=== PATIENT | male | born 1995 | race Caucasian/White ===

== ENCOUNTER 2024-05-28 20:06 | Observation (INO) | payer SELFPAY ==
[2024-05-28 20:09] VITALS: BP 118/78; PULSE 72; RESP 18; TEMP 36.8; O2SAT 100; BMI 26.9
--- NOTE | 2024-05-28 20:13 | ED_ITS ---
<Statement entered by Vero Iqbal DO - 05/28/24 22:26> I was consulted by the JEFFREY, and we discussed the complexity of the problems being addressed. I approved the treatment and management plan for this patient's care in the emergency department, thus performing a substantive portion of the medical decision making. Vero Iqbal DO Discharge Plan Disposition Patient Disposition: Admitted Condition: Good Referrals Follow up/Referrals: Provider,Referral, MD [Primary Care Provider] - See instructions Clinical Impressions Clinical Impression: Acute nontraumatic kidney injury, Non-traumatic rhabdomyolysis, Laceration Syncope Qualifiers: Syncope type: unspecified Qualified Code(s): R55 - Syncope and collapse Instructions Patient Instructions: DI for Syncope in Adults (Fainting), DI for Syncope in Children (Fainting) Print Language Print Language: English Discharge ED Provider: Vero Iqbal General Adult HPI <DANNIELLE Vaughn - Last Filed: 05/28/24 22:20> General Chief complaint: Syncope Stated complaint: AO 05/28/24 1930 laceration to head-fell in shower Time Seen by Provider: 05/28/24 20:13 History of Present Illness HPI narrative: Patient presents for evaluation of syncope. 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 He reportedly was taking a shower at the end of his day and felt his vision go blurry and had a syncopal event. He struck the side of his head and suffering a laceration. When he awoke he asked for help and upon standing with assistance he had another syncopal event but did not suffer any injury. On arrival patient reports a headache but denies vision changes neck pain chest pain muscle pain chest pain shortness of breath fever chills hemoptysis hematochezia melena nausea vomiting diarrhea change in level of consciousness. Related Data Allergies Allergy/AdvReac Type Severity Reaction Status Date / Time No Known Allergies Allergy Verified 05/28/24 20:25 PFSH <DANNIELLE Vaughn - Last Filed: 05/28/24 22:20> [facility] Disclaimer: The information contained in this section may have been updated after the patient was seen, as this information can be updated by other users. Medical History (Updated 05/28/24 @ 22:20 by DANNIELLE Vaughn) Acid reflux Social History Smoking Status: Never smoker alcohol intake: current alcohol intake frequency: holidays/special occasions only current occupational status: employed Travel in the last 8 weeks: Inside the [place] <DANNIELLE Vuaghn - Last Filed: 05/28/24 22:20> ROS Obtained: Yes Systems reviewed as appropriate & no additional complaints except as documented Physical Exam <DANNIELLE Vaughn - Last Filed: 05/28/24 22:20> General General appearance: alert and in no apparent distress Head Head exam: other (Patient has a 2 cm lack on the left side of his scalp near the top of the temporal area on the left. No bony deformity noted.) Eye Eye exam: Present normal appearance, PERRL and EOMI Neck Neck exam: Present normal inspection, full ROM and trachea midline; Absent tenderness Chest Chest inspection: Present normal inspection and symmetric chest wall rise; Absent tenderness Respiratory Respiratory exam: Present normal lung sounds bilaterally; Absent respiratory distress, wheezes or accessory muscle use Cardiovascular Cardiovascular exam: Present regular rate, normal rhythm, normal heart sounds, +S1 and +S2 Extremities Exam Extremities exam: Present normal inspection and full ROM Back Exam Back exam: Present normal inspection and full ROM; Absent tenderness Neurological Exam Neurological exam: Present alert, oriented X3, CN II-XII intact and normal gait; Absent motor sensory deficit Psychiatric Psychiatric exam: Present normal affect and normal mood Medical Decision Making <DANNIELLE Vaughn - Last Filed: 05/28/24 22:20> Medical Records Medical records reviewed: Yes I reviewed the patient's medical records. Screening: Per USPSTF and CDC recommendations, given the prevalence of disease in our region, it is our hospital?s policy to screen for HIV and viral Hepatitis for all patients aged 18 and over and those with ongoing risk factors. Shahid Inquiry Pt receiving controlled substance: No Vital Signs: 05/28/24 20:09 05/28/24 20:30 05/28/24 21:41 Temperature 98.2 F Temperature Source Oral Pulse Rate 86 69 Pulse Rate [Left Radial] 72 Respiratory Rate 18 Blood Pressure 114/69 122/73 Blood Pressure [Right Arm] 118/78 Blood Pressure Mean Blood Pressure Mean [Right Arm] 91 Blood Pressure Source [Right Arm] Automatic Cuff Blood Pressure Position [Right Arm] Sitting 02 Sat by Pulse Oximetry 100 100 100 Oxygen Delivery Method Room Air 05/28/24 21:41 05/28/24 22:00 Temperature Temperature Source Pulse Rate 71 74 Pulse Rate [Left Radial] Respiratory Rate 16 16 Blood Pressure 122/73 122/75 Blood Pressure [Right Arm] Blood Pressure Mean 84 94 Blood Pressure Mean [Right Arm] Blood Pressure Source [Right Arm] Blood Pressure Position [Right Arm] 02 Sat by Pulse Oximetry Oxygen Delivery Method Lab Data Lab results reviewed: Yes I reviewed the patient's lab results. Lab Results 05/28/24 20:55: WBC 11.9 H, RBC 6.21 H, Hgb 18.4 H, Hct 55.1 H, MCV 91.3, MCH 29.7, MCHC 32.5, RDW 13.1, Plt Count 246, MPV 9.2, Neut % (Auto) 85.9 H, Lymph % (Auto) 9.2 L, [place] % (Auto) 3.5, Eos % (Auto) 1.1, Baso % (Auto) 0.4, Neut # (Auto) 10.2 H, Lymph # (Auto) 1.1, [place] # (Auto) 0.4, Eos # (Auto) 0.1, Baso # (Auto) 0.0, Sodium 140, Potassium 4.2, Chloride 98, Carbon Dioxide 27, Anion Gap 19.2 H, BUN 31 H, Creatinine 1.80 H, Estimated Creat Clear 67, Estimated GFR 45 L, Est GFR ( Amer) 54 L, Glucose 86, Calcium 10.6 H, Magnesium 2.2, Total Bilirubin 1.2, AST 60 H, ALT 41, Alkaline Phosphatase 62, Total Creatine Kinase 596 H*, Troponin I 0.03, Total Protein 10.3 H, Albumin 2.9 L, Globulin 7.4 H, A lbumin/Globulin Ratio 0.4 L 05/28/24 20:55 05/28/24 20:55 Orders (Tests/Meds): ED MEDICATIONS Discontinued Medications Generic Name Dose Route Start Last Admin Trade Name Freq PRN Reason Stop Dose Admin Acetaminophen 1,000 mg 05/28/24 20:39 05/28/24 21:10 Acetaminophen 1,000mg/100ml Vial IV 05/28/24 20:40 1,000 mg ONCE ONE Administration Lactated Ringer's 1,000 mls @ 999 mls/hr 05/28/24 20:39 05/28/24 21:09 Lactated Ringer's 1000 Ml Bag IV 05/28/24 21:39 999 mls/hr .Q1H1M ONE Administration Lidocaine HCl 10 ml 05/28/24 20:40 05/28/24 21:11 Lidocaine 1% 10ml Mdv SQ 05/28/24 20:41 10 ml ONCE ONE Administration Tetanus/Reduced Diphtheria/Acell Pertussis 0.5 ml 05/28/24 20:39 05/28/24 21:10 Tet/Diphth/Pert-Adult 0.5ml Syringe IM 05/28/24 20:40 0.5 ml .ONCE ONE Administration ORDERS Category Date Time Status CT head/brain wo con Stat Cat Scan 05/28/24 20:39 Completed CBC w/Auto Diff [Complete Blood Count Auto Diff] Stat Lab 05/28/24 20:55 Results CK [Creatine Kinase] Stat Lab 05/28/24 20:55 Completed CMP [Comprehensive Metabolic Panel] Stat Lab 05/28/24 20:55 Completed Complete Blood Count Auto Diff AMLAB Lab 05/29/24 06:00 Ordered Comprehensive Metabolic Panel AMLAB Lab 05/29/24 06:00 Ordered Magnesium AMLAB Lab 05/29/24 06:00 Ordered Magnesium Stat Lab 05/28/24 20:55 Completed Trop I [Troponin I] Stat Lab 05/28/24 20:55 Completed Troponin I Q3H Lab 05/28/24 23:45 Ordered Troponin I Q3H Lab 05/29/24 02:45 Ordered UA [Urinalysis and Microscopic] Stat Lab 05/28/24 20:40 Ordered Medical Decision Narrative: In summary patient is a 28-year-old male who presents to the emergency department for evaluation of syncope and head laceration. Patient is hemodynamically stable upon arrival, afebrile. Physical exam is remarkable for a 2 cm laceration to the left side of his scalp near the top of the temporal area with no bony deformity. He has no C-spine or dorsal spine tenderness. He is awake alert and oriented with no focal neurologic signs. Glascow coma score is 15.. Differential diagnosis includes vasovagal syncope versus cardiogenic syncope versus head injury versus skull fracture versus C-spine injury versus heat exhaustion etc. Initial workup will be conducted with hematologic labs CT scan of the head C-spine was cleared with Guthrie C-spine rules. Initial interventions include crystalloid bolus Tylenol. Initial workup reviewed by me shows CBC that is indicative of volume contraction but a white count of 11.9 hemoglobin of 18.4 absolute neutrophil count 10.2 CMP is significant for a gap of 19.2 creatinine 1.8 BUN of 31 AST of 60 CK of 596 and my formal interpretation of his CT scan of the head shows no acute processes bleeds or masses.. I repaired his scalp laceration with 7 kush after local anesthesia with lidocaine without epinephrine. Given these findings I had interact discussion with the patient and recommended hospital admission patient is agreeable. Given that I had interact discussion with hospital medicine about patient management and he will be admitted for further evaluation and care <Vero Iqbal, DO - Last Filed: 05/28/24 21:16> Vital Signs: 05/28/24 20:09 05/28/24 20:30 05/28/24 21:41 Temperature 98.2 F Temperature Source Oral Pulse Rate 86 69 Pulse Rate [Left Radial] 72 Respiratory Rate 18 Blood Pressure 114/69 122/73 Blood Pressure [Right Arm] 118/78 Blood Pressure Mean Blood Pressure Mean [Right Arm] 91 Blood Pressure Source [Right Arm] Automatic Cuff Blood Pressure Position [Right Arm] Sitting 02 Sat by Pulse Oximetry 100 100 100 Oxygen Delivery Method Room Air 05/28/24 21:41 05/28/24 22:00 Temperature Temperature Source Pulse Rate 71 74 Pulse Rate [Left Radial] Respiratory Rate 16 16 Blood Pressure 122/73 122/75 Blood Pressure [Right Arm] Blood Pressure Mean 84 94 Blood Pressure Mean [Right Arm] Blood Pressure Source [Right Arm] Blood Pressure Position [Right Arm] 02 Sat by Pulse Oximetry Oxygen Delivery Method Lab Data Lab Results 05/28/24 20:55: WBC 11.9 H, RBC 6.21 H, Hgb 18.4 H, Hct 55.1 H, MCV 91.3, MCH 29.7, MCHC 32.5, RDW 13.1, Plt Count 246, MPV 9.2, Neut % (Auto) 85.9 H, Lymph % (Auto) 9.2 L, [place] % (Auto) 3.5, Eos % (Auto) 1.1, Baso % (Auto) 0.4, Neut # (Auto) 10.2 H, Lymph # (Auto) 1.1, [place] # (Auto) 0.4, Eos # (Auto) 0.1, Baso # (Auto) 0.0, Sodium 140, Potassium 4.2, Chloride 98, Carbon Dioxide 27, Anion Gap 19.2 H, BUN 31 H, Creatinine 1.80 H, Estimated Creat Clear 67, Estimated GFR 45 L, Est GFR ( Amer) 54 L, Glucose 86, Calcium 10.6 H, Magnesium 2.2, Total Bilirubin 1.2, AST 60 H, ALT 41, Alkaline Phosphatase 62, Total Creatine Kinase 596 H*, Troponin I 0.03, Total Protein 10.3 H, Albumin 2.9 L, Globulin 7.4 H, A lbumin/Globulin Ratio 0.4 L Orders (Tests/Meds): ED MEDICATIONS Discontinued Medications Generic Name Dose Route Start Last Admin Trade Name Freq PRN Reason Stop Dose Admin Acetaminophen 1,000 mg 05/28/24 20:39 05/28/24 21:10 Acetaminophen 1,000mg/100ml Vial IV 05/28/24 20:40 1,000 mg ONCE ONE Administration Lactated Ringer's 1,000 mls @ 999 mls/hr 05/28/24 20:39 05/28/24 21:09 Lactated Ringer's 1000 Ml Bag IV 05/28/24 21:39 999 mls/hr .Q1H1M ONE Administration Lidocaine HCl 10 ml 05/28/24 20:40 05/28/24 21:11 Lidocaine 1% 10ml Mdv SQ 05/28/24 20:41 10 ml ONCE ONE Administration Tetanus/Reduced Diphtheria/Acell Pertussis 0.5 ml 05/28/24 20:39 05/28/24 21:10 Tet/Diphth/Pert-Adult 0.5ml Syringe IM 05/28/24 20:40 0.5 ml .ONCE ONE Administration ORDERS Category Date Time Status CT head/brain wo con Stat Cat Scan 05/28/24 20:39 Completed CBC w/Auto Diff [Complete Blood Count Auto Diff] Stat Lab 05/28/24 20:55 Results CK [Creatine Kinase] Stat Lab 05/28/24 20:55 Completed CMP [Comprehensive Metabolic Panel] Stat Lab 05/28/24 20:55 Completed Complete Blood Count Auto Diff AMLAB Lab 05/29/24 06:00 Ordered Comprehensive Metabolic Panel AMLAB Lab 05/29/24 06:00 Ordered Magnesium AMLAB Lab 05/29/24 06:00 Ordered Magnesium Stat Lab 05/28/24 20:55 Completed Trop I [Troponin I] Stat Lab 05/28/24 20:55 Completed Troponin I Q3H Lab 05/28/24 23:45 Ordered Troponin I Q3H Lab 05/29/24 02:45 Ordered UA [Urinalysis and Microscopic] Stat Lab 05/28/24 20:40 Ordered ECG Data Tracing #1: I reviewed this ECG and interpreted as documented below: Normal sinus rhythm with a ventricular rate of 70 bpm. Benign early repolarization. Possible peaked T waves in V4 and V5 but otherwise T waves reassuring. No acute ST changes concerning for ischemia. Normal intervals. ECG initial impression date: 05/28/24 ECG initial impression time: 21:13 Procedures <DANNIELLE Vaughn - Last Filed: 05/28/24 22:20> Laceration Laceration 1: Site: scalp Side (If applicable): left Size (cm): 2.5 Description: linear Depth: simple, single layer Local Anesthetic: lidocaine 1% Amount of anesthesia used (mL): 10 Pre-repair: wound explored, irrigated extensively and deep structures intact Skin layer closed with: other (Kush) Number of sutures: 7 Critical Care <DANNIELLE Vaughn - Last Filed: 05/28/24 22:20> Critical Care Time Critical Care Time: No
[2024-05-28 20:30] VITALS: BP 114/69; PULSE 86; O2SAT 100
--- NOTE | 2024-05-28 20:38 | PC.NURSE ---
Utilized language line with advertising copy writer ID: [id number] with Markus SPICER to evaluate patient and inform of plan of care at this time.
--- NOTE | 2024-05-28 20:39 | CT_ITS ---
PROCEDURE INFORMATION: Exam: CT Head Without Contrast Exam date and time: 05/28/2024 8:58 PM Age: 28 years old Clinical indication: Syncope and collapse; Additional info: Syncope, head laceration TECHNIQUE: Imaging protocol: Computed tomography of the head without contrast. Radiation optimization: All CT scans at this facility use at least one of these dose optimization techniques: automated exposure control; mA and/or kV adjustment per patient size (includes targeted exams where dose is matched to clinical indication); or iterative reconstruction. COMPARISON: No relevant prior studies available. FINDINGS: Brain: Normal. No hemorrhage. Unremarkable white matter. No mass effect. Cerebral ventricles: No ventriculomegaly. Paranasal sinuses: Visualized sinuses are unremarkable. No fluid levels. Mastoid air cells: Visualized mastoid air cells are well aerated. Bones: Unremarkable. No acute fracture. Soft tissues: Unremarkable. IMPRESSION: No acute intracranial abnormality.
[2024-05-28 21:03] LABS: Basophils % 0.4 % (0.1-2.0); Eosinophils # 0.1 K/mm3 (0.0-0.4); Eosinophils % 1.1 % (0.1-12.0); Lymphocytes # 1.1 K/mm3 (0.7-4.5); Lymphocytes % 9.2 % (10-50); Mean Corpuscular HGB Conc 32.5 g/dL (31.8-35.4); Mean Corpuscular Hemoglobin 29.7 pg (27.0-31.2); Mean Corpuscular Volume 91.3 fl (80-94); Mean Platelet Volume 9.2 fl (7.4-10.4); Monocytes # 0.4 K/mm3 (0.1-1.0); Monocytes % 3.5 % (1.7-9.3); Neutrophils # 10.2 K/mm3 (1.8-7.8); Neutrophils % 85.9 % (37.0-80.0); Platelet Count 246 K/mm3 (142-424); Red Blood Count 6.21 M/mm3 (4.60-6.20); Red Cell Distribution Width 13.1 % (11.5-17.5); White Blood Count 11.9 K/mm3 (4.8-10.8)
[2024-05-28 21:09] LABS: Chloride 98 mmol/L (98-107); Potassium 4.2 mmoL/L (3.5-5.1); Sodium 140 mmol/L (136-145)
[2024-05-28] MEDS: LACTATED RINGERS 1000ML 1,000 ML 999 ML IV (21:09)
[2024-05-28 21:10] LABS: MANUAL DIFFERENTIAL MANUAL DIFFERENTIAL (MANUAL DIFF)
[2024-05-28] MEDS: TET/DIPHTH/PERT-ADULT 0.5ML SYRINGE 0.5 ML IM (21:10)
[2024-05-28] MEDS: ACETAMINOPHEN 1,000MG/100ML VIAL 1000 MG IV (21:10)
--- NOTE | 2024-05-28 21:10 | ECG_ITS ---
APPROVED REPORT Exam: Resting ECG HR:70 bpm ECG Measurements Heart Rate 70 AXES CA 172 P 68 QRSd 85 QRS 95 QT 363 T 71 QTc 384 Conclusion SINUS RHYTHM BORDERLINE RIGHT AXIS DEVIATION [QRS AXIS > 90] EARLY REPOLARIZATION [ST ELEVATION WITH NORMALLY INFLECTED T-WAVE] Electronically signed by : ASHWINI RODRIGUEZ, 05/28/2024 22:16:18
[2024-05-28 21:11] LABS: Hematocrit 55.1 % (42.0-52.0); Hemoglobin 18.4 g/dL (14.1-18.0)
[2024-05-28] MEDS: LIDOCAINE 1% 10ML MDV 10 ML SQ (21:11)
[2024-05-28 21:12] LABS: Alanine Aminotransferase 41 U/L (12-78); Alkaline Phosphatase 62 U/L (38-126); Anion Gap 19.2 mEq/L (5-15); Aspartate Amino Transferase 60 U/L (17-59); Bilirubin,Total 1.2 mg/dl (0.2-1.3); Blood Urea Nitrogen 31 mg/dl (9-20); Carbon Dioxide 27 mmol/L (22.0-30.0); Creatine Kinase 596 U/L (55-170); Creatinine Clearance Estimated 67 mL/min (50-200); Estimated Glomerular Filt Rate 45 ml/min (>60); GFR (African American) 54 ML/MIN (>60); Total Protein,Serum 10.3 g/dl (6.3-8.2)
[2024-05-28 21:13] LABS: Calcium 10.6 mg/dl (8.4-10.2); Glucose 86 mg/dl (74-100)
[2024-05-28 21:24] LABS: Troponin I 0.03 ng/ml (0.00-0.034)
[2024-05-28 21:29] LABS: Magnesium 2.2 mg/dl (1.6-2.3)
[2024-05-28 21:41] VITALS: BP 122/73; PULSE 69; PULSE 71; RESP 16; O2SAT 100
[2024-05-28 21:44] LABS: Albumin Level 2.9 g/dl (3.5-5.0); Albumin/Globulin Ratio 0.4 (1.1-1.8); Globulin 7.4 g/dL (1.3-3.2)
[2024-05-28 22:00] VITALS: BP 122/75; PULSE 74; RESP 16
--- NOTE | 2024-05-28 22:04 | PC.NURSE ---
Varnishing Unit Tool Setter on line, provider in explaining laceration repair, pt agreeable
--- NOTE | 2024-05-28 22:07 | PC.NURSE ---
Utilized program planner ID:[id number] for patient care, explanation of lab results, and during laceration repair. Markus SPICER at bedside for laceration repair.
[2024-05-28 22:20] LABS: Eosinophils % 1 % (0-3); Lymphocytes % 11 % (10-50); Monocytes % 1 % (2-9); Neutrophils % 86 % (42-76); Total Cells Counted 100
[2024-05-28 22:21] LABS: RBC Morphology Normal
[2024-05-28 22:22] LABS: Stomatocytes 1+; Tear Drop Cells 1+
--- NOTE | 2024-05-28 22:22 | EXP.HP ---
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 He reportedly was taking a shower at the end of his day and felt his vision go blurry and had a syncopal event. He struck the side of his head and suffering a laceration. When he awoke he asked for help and upon standing with assistance he had another syncopal event but did not suffer any injury. Patient admit to be on the heat all day without drinking enough. On arrival patient reports a headache but denies vision changes neck pain chest pain muscle pain chest pain shortness of breath fever chills hemoptysis hematochezia melena nausea vomiting diarrhea change in level of consciousness. Admitted for further monitoring. [facility] Disclaimer: The information contained in this section may have been updated after the patient was seen, as this information can be updated by other users. Medical History Acid reflux Social History (Updated 05/29/24 @ 00:19 by Sara France RN) Smoking Status: Never smoker alcohol intake: current alcohol intake frequency: holidays/special occasions only current occupational status: employed Travel in the last 8 weeks: [place] the [place] Review of Systems Review of Systems Review of systems:: pertinent systems reviewed and negative unless documented below Meds Home Medications and Allergies Home Medications ?Medication ?Instructions ?Recorded ?Confirmed ?Type No Known Home Medications 05/29/24 05/29/24 History New Prescriptions to Start Prescriptions: Allergies Allergy/AdvReac Type Severity Reaction Status Date / Time No Known Allergies Allergy Verified 05/28/24 20:25 Exam Data for Last 24 hours Vital signs and Labs for Last 24 Hours: Temp Pulse Resp BP Pulse Ox O2 Del Method 98.2 F 74 16 122/75 100 Room Air 05/28/24 20:09 05/28/24 22:00 05/28/24 22:00 05/28/24 22:00 05/28/24 21:41 05/28/24 20:09 Laboratory Results - last 24 hr 05/28/24 20:55: WBC 11.9 H, RBC 6.21 H, Hgb 18.4 H, Hct 55.1 H, MCV 91.3, MCH 29.7, MCHC 32.5, RDW 13.1, Plt Count 246, MPV 9.2, Neut % (Auto) 85.9 H, Lymph % (Auto) 9.2 L, [place] % (Auto) 3.5, Eos % (Auto) 1.1, Baso % (Auto) 0.4, Neut # (Auto) 10.2 H, Lymph # (Auto) 1.1, [place] # (Auto) 0.4, Eos # (Auto) 0.1, Baso # (Auto) 0.0, Total Counted 100, Neutrophils % (Manual) 86 H, Lymphocytes % (Manual) 11, Atypical Lymphs % 1.0, Monocytes % (Manual) 1 L, Eosinophils % (Manual) 1, Platelet Estimate Not Reportable, RBC Morphology Normal, Tear Drop Cells 1+, Stomatocytes 1+, Sodium 140, Potassium 4.2, Chloride 98, Carbon Dioxide 27, Anion Gap 19.2 H, BUN 31 H, Creatinine 1.80 H, Estimated Creat Clear 67, Estimated GFR 45 L, Est GFR ( Amer) 54 L, Glucose 86, Calcium 10.6 H, Magnesium 2.2, Total Bilirubin 1.2, AST 60 H, ALT 41, Alkaline Phosphatase 62, Total Creatine Kinase 596 H*, Troponin I 0.03, Total Protein 10.3 H, Albumin 2.9 L, Globulin 7.4 H, Albumin/Globulin Ratio 0.4 L I & O for Last 24 hours: Intake & Output 05/25/24 05/26/24 05/27/24 05/28/24 23:59 23:59 23:59 23:59 Weight 78 kg Constitutional Constitutional: mild distress and cooperative *Routine HEENT Exam Head: Present normocephalic, laceration and scalp tenderness; Absent atraumatic Eye: Present EOMI and PERRL ENT: Present mucous membranes dry *Routine Neck Exam Neck: Present supple; Absent lymphadenopathy *Routine Respiratory Exam Respiratory: Present CTA bilaterally *Routine Cardiovascular Exam Cardiovascular: Present RRR, Normal S1 and Normal S2 *Routine Abdominal Exam Abdominal: Present soft and normoactive bowel sounds; Absent tenderness *Routine Rectal Exam Rectal:: deferred *Routine Genitalia Exam Genitalia:: deferred *Routine Extremities Exam Extremities: Absent cyanosis, clubbing or edema *Routine Skin Exam Skin: Present warm and wounds; Absent rash *Routine Neurological Exam Neurological: Present alert, oriented X3, CN II-XII intact, moving all extremities and normal speech; Absent sensory deficit or motor deficit Routine Psychiatric Exam Psychiatric: Present good insight and good judgment H&P: Result Imaging and Cardiology EKG: Status: image reviewed by me, Preliminary report and final report CT scan - head: Status: image reviewed by me, Preliminary report and final report Assessment and Plan *Assessment and plan (1) Syncope: Status: Acute Qualifiers: Syncope type: unspecified Qualified Code(s): R55 - Syncope and collapse Category: Medical Code(s): R55 - Syncope and collapse (2) Acute nontraumatic kidney injury: Status: Acute Category: Medical Code(s): N17.9 - Acute kidney failure, unspecified (3) Non-traumatic rhabdomyolysis: Status: Acute Category: Medical Code(s): M62.82 - Rhabdomyolysis (4) Laceration: Status: Acute Category: Medical Plan 25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 He reportedly was taking a shower at the end of his day and felt his vision go blurry and had a syncopal event. on arrival Initial workup included crystalloid bolus Tylenol. Initial workup reviewed by me shows CBC that is indicative of volume contraction but a white count of 11.9 hemoglobin of 18.4 absolute neutrophil count 10.2 CMP is significant for a gap of 19.2 creatinine 1.8 BUN of 31 AST of [address] scan of the head shows no acute processes bleeds or masses. scalp laceration repaired with 7 susan with local lidocaine without epinephrine. ED requested admission for inpatient monitoring and treatment. Agreed for it. Plan: -Syncope, likely secondary to heat exhaust and dehydration: LINDSAY, secondary to prerenal azotemia. rhabdomyolisis. left parietal scalp laceration. Admit patient for continuous monitoring. Start cardiac telemetry Continue IV hydration. Normal saline at 100 mL/h Encourage increased p.o. intake Monitor renal output. CT of the head reviewed. No acute intracranial process EKG normal UA pending Monitor CK in the morning Repeat labs including CBC CMP. Watch for electrolytes imbalance Avoid nephrotoxic medication Pain management with Tylenol, morphine for severe pain Zofran for nausea Monitor for signs of bleeding from the scalp wound. Tetanus reactivated Vital signs. Lovenox for DVT prophylaxis Protonix for GI bleed protection and GERD Regular diet Full code Rounded on patient after nurse practitioner. Personally examined and interviewed patient. Agree with exam findings and care plan as documented.
[2024-05-28 22:27] VITALS: BP 122/75; PULSE 72; RESP 16; TEMP 36.7; O2SAT 100
--- NOTE | 2024-05-28 22:32 | PC.NURSE ---
patient being transferred to floor at this time
--- NOTE | 2024-05-28 22:39 | PC.NURSE ---
pt arrived to floor via wheelchair @22:37
[2024-05-28 23:09] VITALS: BP 116/75; PULSE 75; RESP 16; TEMP 36.4; O2SAT 100
[2024-05-28 23:10] VITALS: BMI 22.6
[2024-05-28] MEDS: 0.9 % SODIUM CHLORIDE 1000ML 1,000 ML 100 ML IV (23:24)
[2024-05-29 00:14] LABS: Troponin I 0.02 ng/ml (0.00-0.034)
[2024-05-29 02:58] LABS: Troponin I < 0.01 ng/ml (0.00-0.034)
[2024-05-29 04:00] VITALS: BMI 22.6
--- NOTE | 2024-05-29 06:33 | PC.NURSE ---
Pt primarily khmer speaking, podopediatrician device used to communicate with patient. Receiving IV fluids. Lungs clear. NSR on telemetry. no complaints voiced to staff. call light within reach.
[2024-05-29 07:05] LABS: Basophils % 0.3 % (0.1-2.0); Eosinophils % 0.5 % (0.1-12.0); Hematocrit 46.5 % (42.0-52.0); Lymphocytes # 1.4 K/mm3 (0.7-4.5); Mean Corpuscular HGB Conc 32.4 g/dL (31.8-35.4); Mean Corpuscular Hemoglobin 29.7 pg (27.0-31.2); Mean Corpuscular Volume 91.9 fl (80-94); Mean Platelet Volume 8.9 fl (7.4-10.4); Monocytes # 0.6 K/mm3 (0.1-1.0); Monocytes % 6.7 % (1.7-9.3); Neutrophils # 6.9 K/mm3 (1.8-7.8); Neutrophils % 76.5 % (37.0-80.0); Platelet Count 234 K/mm3 (142-424); Red Blood Count 5.07 M/mm3 (4.60-6.20); Red Cell Distribution Width 13.3 % (11.5-17.5)
[2024-05-29 07:11] LABS: Alanine Aminotransferase 28 U/L (12-78); Albumin Level 4.3 g/dl (3.5-5.0); Albumin/Globulin Ratio 1.5 (1.1-1.8); Alkaline Phosphatase 49 U/L (38-126); Anion Gap 9.7 mEq/L (5-15); Aspartate Amino Transferase 46 U/L (17-59); Bilirubin,Total 0.9 mg/dl (0.2-1.3); Blood Urea Nitrogen 23 mg/dl (9-20); Calcium 8.9 mg/dl (8.4-10.2); Carbon Dioxide 28 mmol/L (22.0-30.0); Chloride 103 mmol/L (98-107); Creatine Kinase 705 U/L (55-170); Creatinine Clearance Estimated 112 mL/min (50-200); Estimated Glomerular Filt Rate 100 ml/min (>60); GFR (African American) 121 ML/MIN (>60); Globulin 2.9 g/dL (1.3-3.2); Glucose 92 mg/dl (74-100); Potassium 3.7 mmoL/L (3.5-5.1); Sodium 137 mmol/L (136-145); Total Protein,Serum 7.2 g/dl (6.3-8.2)
[2024-05-29 07:45] VITALS: BP 118/50; PULSE 65; RESP 16; TEMP 36.7; O2SAT 97
--- NOTE | 2024-05-29 07:55 | P.DS_ITS ---
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 He reportedly was taking a shower at the end of his day and felt his vision go blurry and had a syncopal event. He struck the side of his head and suffering a laceration. When he awoke he asked for help and upon standing with assistance he had another syncopal event but did not suffer any injury. Patient admit to be on the heat all day without drinking enough. On arrival patient reports a headache but denies vision changes neck pain chest pain muscle pain chest pain shortness of breath fever chills hemoptysis hematochezia melena nausea vomiting diarrhea change in level of consciousness. Admitted for further monitoring. Exam Data for Last 24 hours Vital signs and Labs for Last 24 Hours: Temp Pulse Resp BP Pulse Ox O2 Del Method 98.1 F 65 16 118/50 L 97 Room Air 05/29/24 07:45 05/29/24 07:45 05/29/24 07:45 05/29/24 07:45 05/29/24 07:45 05/29/24 07:45 Laboratory Results - last 24 hr 05/28/24 20:55: WBC 11.9 H, RBC 6.21 H, Hgb 18.4 H, Hct 55.1 H, MCV 91.3, MCH 29.7, MCHC 32.5, RDW 13.1, Plt Count 246, MPV 9.2, Neut % (Auto) 85.9 H, Lymph % (Auto) 9.2 L, [place] % (Auto) 3.5, Eos % (Auto) 1.1, Baso % (Auto) 0.4, Neut # (Auto) 10.2 H, Lymph # (Auto) 1.1, [place] # (Auto) 0.4, Eos # (Auto) 0.1, Baso # (Auto) 0.0, Total Counted 100, Neutrophils % (Manual) 86 H, Lymphocytes % (Manual) 11, Atypical Lymphs % 1.0, Monocytes % (Manual) 1 L, Eosinophils % (Manual) 1, Platelet Estimate Not Reportable, RBC Morphology Normal, Tear Drop Cells 1+, Stomatocytes 1+, Sodium 140, Potassium 4.2, Chloride 98, Carbon Dioxide 27, Anion Gap 19.2 H, BUN 31 H, Creatinine 1.80 H, Estimated Creat Clear 67, Estimated GFR 45 L, Est GFR ( Amer) 54 L, Glucose 86, Calcium 10.6 H, Magnesium 2.2, Total Bilirubin 1.2, AST 60 H, ALT 41, Alkaline Phosphatase 62, Total Creatine Kinase 596 H*, Troponin I 0.03, Total Protein 10.3 H, Albumin 2.9 L, Globulin 7.4 H, Albumin/Globulin Ratio 0.4 L 05/28/24 23:45: Troponin I 0.02 05/29/24 02:30: Troponin I < 0.01 05/29/24 06:36: WBC 9.0, RBC 5.07, Hct 46.5, MCV 91.9, MCH 29.7, MCHC 32.4, RDW 13.3, Plt Count 234, MPV 8.9, Neut % (Auto) 76.5, Lymph % (Auto) 16.0, [place] % (Auto) 6.7, Eos % (Auto) 0.5, Baso % (Auto) 0.3, Neut # (Auto) 6.9, Lymph # (Auto) 1.4, [place] # (Auto) 0.6, Eos # (Auto) 0.0, Baso # (Auto) 0.0, Sodium 137, Potassium 3.7, Chloride 103, Carbon Dioxide 28, Anion Gap 9.7, BUN 23 H D, Creatinine 0.90 D, Estimated Creat Clear 112, Estimated GFR 100, Est GFR ( Amer) 121 D, Glucose 92, Calcium 8.9, Magnesium 2.0, Total Bilirubin 0.9, AST 46, ALT 28 D, Alkaline Phosphatase 49, Total Creatine Kinase 705 H*, Total Protein 7.2 D, Albumin 4.3 D, Globulin 2.9, Albumin/Globulin Ratio 1.5 I & O for Last 24 hours: Intake & Output 05/26/24 05/27/24 05/28/24 05/29/24 23:59 23:59 23:59 23:59 Output Total 250 / 250 Balance -250 / -250 Weight 65.317 kg 65.31 kg Results Data Completed and Pending Labs on day of discharge: Labs from last 24 hours 0905/29/24 05/28/24 06:36 02:30 23:45 WBC 9.0 RBC 5.07 Hgb Hct 46.5 MCV 91.9 MCH 29.7 MCHC 32.4 RDW 13.3 Plt Count 234 MPV 8.9 Neut % (Auto) 76.5 Lymph % (Auto) 16.0 [place] % (Auto) 6.7 Eos % (Auto) 0.5 Baso % (Auto) 0.3 Neut # (Auto) 6.9 Lymph # (Auto) 1.4 [place] # (Auto) 0.6 Eos # (Auto) 0.0 Baso # (Auto) 0.0 Total Counted Neutrophils % (Manual) Lymphocytes % (Manual) Atypical Lymphs % Monocytes % (Manual) Eosinophils % (Manual) Platelet Estimate RBC Morphology Tear Drop Cells Stomatocytes Sodium 137 Potassium 3.7 Chloride 103 Carbon Dioxide 28 Anion Gap 9.7 BUN 23 H D Creatinine 0.90 D Estimated Creat Clear 112 Estimated GFR 100 Est GFR ( Amer) 121 D Glucose 92 Calcium 8.9 Magnesium 2.0 Total Bilirubin 0.9 AST 46 ALT 28 D Alkaline Phosphatase 49 Total Creatine Kinase 705 H* Troponin I < 0.01 0.02 Total Protein 7.2 D Albumin 4.3 D Globulin 2.9 Albumin/Globulin Ratio 1.5 05/28/24 20:55 WBC 11.9 H RBC 6.21 H Hgb 18.4 H Hct 55.1 H MCV 91.3 MCH 29.7 MCHC 32.5 RDW 13.1 Plt Count 246 MPV 9.2 Neut % (Auto) 85.9 H Lymph % (Auto) 9.2 L [place] % (Auto) 3.5 Eos % (Auto) 1.1 Baso % (Auto) 0.4 Neut # (Auto) 10.2 H Lymph # (Auto) 1.1 [place] # (Auto) 0.4 Eos # (Auto) 0.1 Baso # (Auto) 0.0 Total Counted 100 Neutrophils % (Manual) 86 H Lymphocytes % (Manual) 11 Atypical Lymphs % 1.0 Monocytes % (Manual) 1 L Eosinophils % (Manual) 1 Platelet Estimate Not Reportable RBC Morphology Normal Tear Drop Cells 1+ Stomatocytes 1+ Sodium 140 Potassium 4.2 Chloride 98 Carbon Dioxide 27 Anion Gap 19.2 H BUN 31 H Creatinine 1.80 H Estimated Creat Clear 67 Estimated GFR 45 L Est GFR ( Amer) 54 L Glucose 86 Calcium 10.6 H Magnesium 2.2 Total Bilirubin 1.2 AST 60 H ALT 41 Alkaline Phosphatase 62 Total Creatine Kinase 596 H* Troponin I 0.03 Total Protein 10.3 H Albumin 2.9 L Globulin 7.4 H Albumin/Globulin Ratio 0.4 L DS: Diagnosis Discharge Diagnosis (1) Syncope: Status: Acute Code(s): R55 - Syncope and collapse Qualifiers: Syncope type: unspecified Qualified Code(s): R55 - Syncope and collapse (2) Acute nontraumatic kidney injury: Status: Acute Code(s): N17.9 - Acute kidney failure, unspecified (3) Non-traumatic rhabdomyolysis: Status: Acute Code(s): M62.82 - Rhabdomyolysis (4) Laceration: Status: Acute Meds Home Medications and Allergies Home Medications ?Medication ?Instructions ?Recorded ?Confirmed ?Type No Known Home Medications 05/29/24 05/29/24 History New Prescriptions to Start Prescriptions: Allergies Allergy/AdvReac Type Severity Reaction Status Date / Time No Known Allergies Allergy Verified 05/28/24 20:25 Discharge Plan Disposition Condition: Good Follow up Plan Prescriptions/Medication Reconciliation: No Action No Known Home Medications Patient Discharge Instructions Print Language: Occitan Providers Primary Care Provider: Provider,Referral Admit Provider: Beto Keller Attending Provider: Beto Keller
[2024-05-29 07:57] LABS: Hemoglobin 15.1 g/dL (14.1-18.0)
[2024-05-29] MEDS: ACETAMINOPHEN 325MG TAB 650 MG PO (08:19)
[2024-05-29] MEDS: ENOXAPARIN 40MG/0.4ML SYRINGE 40 MG SQ (08:20)
[2024-05-29] MEDS: 0.9 % SODIUM CHLORIDE 1000ML 1,000 ML 100 ML IV (08:22)
== END 2024-05-29 14:22 | disposition home or self-care (01) ==
LOC: ER 22:20 → 2ND 22:35
PROVIDERS: Nurse Practitioner Family; Physician Assistant; Admitting Provider Student in an Organized Health Care Education/Training Program; Emergency Provider Emergency Medicine; Visit Provider Student in an Organized Health Care Education/Training Program
DX: R55 Syncope and collapse (principal); N17.9 Acute kidney failure, unspecified; M62.82 Rhabdomyolysis; S01.01XA Laceration without foreign body of scalp, initial encounter; W18.2XXA Fall in (into) shower or empty bathtub, initial encounter; D72.829 Elevated white blood cell count, unspecified
CPT/HCPCS: 36415; 70450; 80053; 82550; 83735; 84484; 85007; 85025; 90715; 93005; 99285; G0378; J0131; J1650; J7030; J7120

== ENCOUNTER 2024-06-08 13:27 | Emergency (ER) | payer SELFPAY ==
[2024-06-08 13:30] VITALS: BP 123/64; PULSE 75; RESP 20; TEMP 36.6; O2SAT 99; BMI 22.6
[2024-06-08 13:40] VITALS: BP 123/64; PULSE 75; RESP 20; TEMP 36.6; O2SAT 99
--- NOTE | 2024-06-08 13:40 | ED_ITS ---
Discharge Plan Prescriptions Prescriptions: No Action No Known Home Medications Referrals Follow up/Referrals: Provider,Referral, [Primary Care Provider] - See instructions Print Language Print Language: Swedish Discharge ED Provider: Trevor Hickey [facility] HPI General Stated complaint: staple removal Time Seen by Provider: 06/08/24 13:40 Related Data Home Medications ?Medication ?Instructions ?Recorded ?Confirmed No Known Home Medications 05/29/24 05/29/24 Allergies Allergy/AdvReac Type Severity Reaction Status Date / Time No Known Allergies Allergy Verified 05/28/24 20:25 [facility] Disclaimer: The information contained in this section may have been updated after the patient was seen, as this information can be updated by other users. Medical History (Updated 06/02/24 @ 00:00 by Cally Alvarenga) Acid reflux Social History (Updated 05/29/24 @ 00:19 by Sara France RN) Smoking Status: Never smoker alcohol intake: current alcohol intake frequency: holidays/special occasions only current occupational status: employed Travel in the last 8 weeks: Inside the [place] Medical Decision Making Medical Records Screening: Per USPSTF and CDC recommendations, given the prevalence of disease in our region, it is our hospital?s policy to screen for HIV and viral Hepatitis for all patients aged 18 and over and those with ongoing risk factors.
== END 2024-06-08 13:42 | disposition home or self-care (01) ==
PROVIDERS: Emergency Provider Nurse Practitioner Family
DX: Z48.02 Encounter for removal of sutures (principal)

== ENCOUNTER 2024-07-09 08:31 | Emergency (ER) | payer SELFPAY ==
[2024-07-09 08:44] VITALS: BP 119/74; PULSE 73; RESP 20; TEMP 36.6; O2SAT 99
[2024-07-09 08:46] VITALS: BP 119/74; PULSE 73; RESP 20; TEMP 36.6
== END 2024-07-09 08:46 | disposition home or self-care (01) ==
PROVIDERS: Emergency Provider Nurse Practitioner
DX: Z48.02 Encounter for removal of sutures (principal)
CPT/HCPCS: G0380